=== PATIENT | male | born 1965 | race Caucasian/White ===

== ENCOUNTER → 2022-07-09 | Outpatient (CLI) | payer OTHER, SELFPAY ==
--- NOTE | 2022-07-09 15:52 | MRI_ITS ---
EXAM: MR RIGHT LOWER EXTREMITY WITHOUT INTRAVENOUS CONTRAST, FOOT CLINICAL INDICATION: PLEASE EVAL FOR NON UNION 5TH MT BONE FRACTURE/PERONEAL TENDONITIS TECHNIQUE: Multiplanar and multisequence MR images of the right foot without intravenous contrast. COMPARISON: No relevant prior studies available. FINDINGS: LIGAMENTS: MEDIAL COLLATERAL: Unremarkable. Intact. LATERAL COLLATERAL: Unremarkable. Intact. LISFRANC: Unremarkable. Intact. TENDONS: FLEXOR: Unremarkable. Intact. EXTENSOR: Unremarkable. Intact. PERONEAL: Unremarkable. Intact. TIBIALIS ANTERIOR: Unremarkable. Intact. TIBIALIS POSTERIOR: Unremarkable. Intact. MUSCLES: Muscles and tendons are normal. FLUID: Unremarkable. No other masses or fluid collections. PLANTAR FASCIA: Unremarkable. Intact. BONES/JOINTS: Nonunited fracture involving the proximal metatarsal with very small amount of fluid signal in the area of the fracture line with mild bone marrow edema on both both sides of the fracture line. Alignment is nearly anatomic. Normal forefoot alignment. No joint effusion. No other bone marrow signal alterations. OTHER SOFT TISSUES: Unremarkable. OTHER FINDINGS: Neurovascular structures are normal. MRI/Lower Ext/No Jt/w/o IMPRESSION: Nonunited fracture involving the proximal metatarsal with very small amount of fluid signal in the area of the fracture line with mild bone marrow edema on both both sides of the fracture line. Alignment is nearly anatomic. Electronically Signed: Baldemar Vale MD at 21:34 EDT ,
== END | disposition home or self-care (01) ==
PROVIDERS: PCP Family Medicine; Referring Provider Student in an Organized Health Care Education/Training Program; Visit Provider Student in an Organized Health Care Education/Training Program
DX: M84.374D Stress fracture, right foot, subsequent encounter for fracture with routine healing (principal); M79.671 Pain in right foot
CPT/HCPCS: 73718

== ENCOUNTER 2022-08-23 11:57 | Day surgery (SDC) | payer OTHER, SELFPAY ==
[2022-08-23 12:39] VITALS: BP 122/82; PULSE 56; RESP 16; TEMP 36.3; O2SAT 100; BMI 26.9
[2022-08-23] MEDS: Lactated Ringers 1,000 ML 15 ML IV (12:42)
[2022-08-23] MEDS: Cefazolin 2 GM in 0.9% Normal Saline 100 ML IV (14:32)
--- NOTE | 2022-08-23 14:33 | DCINST_ITS ---
Discharge Instructions Diet Discharge Diet: No restrictions Activity Discharge Activity: May Not Drive, May Shower (Utilize cast bag when showering to keep dressings clean, dry, and intact to the right foot) and Use Crutches Weight Bearing Status: No weight bearing (Please remain nonweightbearing to right foot with use of crutches, knee scooter) Keep extremity elevated above heart level: Right Leg (Please elevate right lower extremity at times of rest for postoperative edema control) Dressing / Incision Call your doctor if you observe: Fever of 101 or Higher, Chest pain, Calf discomfort and Uncontrolled pain Change Dressing in: do not change dressing Remove Dressing in: leave in place till F/U (Physician will change dressing at first postoperative appointment) Cleanse incision/area with: Do not get Incision Wet and Keep Dressing Clean & Dry (Please keep dressings clean dry and intact to right foot) Follow Up Care Please Follow Up With: Son Asencio DPM When: Patient has first postoperative appointment with me in office next week Test Results: Test results from this visit will be discussed in further detail at your follow- up appointment, if applicable. Discharge Plan Admission Attending Provider: Son Asencio Primary Care Provider: Son Lakhani Discharge Orders/Prescriptions Prescriptions: New doxycycline hyclate 100 mg capsule 100 mg PO DAILY Qty: 10 0RF aspirin 325 mg tablet 325 mg PO DAILY 20 Days Qty: 20 0RF oxycodone-acetaminophen 5-325 mg tablet 1 tab PO Q6H PRN (Reason: pain) 7 Days Qty: 28 0RF No Action atorvastatin 40 mg Tablet 40 mg PO QHS modafinil 200 mg Tablet 200 mg PO BID ibuprofen 600 mg Tablet 600 mg PO Q8H PRN (Reason: Pain) multivitamin Capsule 1 cap PO DAILY fish,bora,flax oils-om3,6,9no1 [[place] 3-6-9 Complex] 400-400-400 mg Capsule 1 cap PO BID pqildjup-xhphtlambix-exb C-Mn [id number] mg Tablet 1 tab PO DAILY Referrals / Follow Up: Son Lakhani MD [Primary Care Provider] - Disposition Disposition (needs filled in before D/C Order can be placed): Home, Self Care
--- NOTE | 2022-08-23 14:35 | RAD_ITS ---
XR Foot - intraoperative fluoroscopy INDICATION:57 years old Male presenting with fracture, ORIF nonunion 5th metatarsal fracture. TECHNIQUE: Fluoroscopic images are submitted from a procedure. Fluoro time: 59.5 seconds Images:6 Dose DAP: 1.0 mGy FINDINGS: Intraoperative fluoroscopic images of ORIF proximal 5th metatarsal received, demonstrating adequate alignment of fracture fragments with orthopedic screw in place. No radiologist was present for this procedure. Please see procedure note for further details. Electronically Signed: Calvin Alanis MD at 6:36 EDT , RAD/Foot 2 Views IMPRESSION: undefined
[2022-08-23] MEDS: Bupivacaine Mpf 0.5% 30 ML VIAL (15:00)
[2022-08-23] MEDS: Lidocaine 1% (30 ml sdv) 30 ML Vial (15:00)
[2022-08-23 16:11] VITALS: BP 134/99; PULSE 62; RESP 16; TEMP 36.1; O2SAT 100
[2022-08-23 16:15] VITALS: BP 130/105; PULSE 55; RESP 16; O2SAT 100
--- NOTE | 2022-08-23 16:25 | RAD_ITS ---
INDICATION: Postop ORIF fifth metatarsal fracture EXAMINATION/TECHNIQUE: X-RAY - RIGHT XR Foot Min 3 Views 3 VIEWS COMPARISON: August 23, 2022 fluoroscopy. MRI foot July 09, 2022 FINDINGS: Splint material obscures fine osseous detail. Fifth metatarsal compression screw fixation spanning prior fracture lucency. No additional fracture. No dislocation. Normal bone mineralization. RAD/Foot min 3 Views IMPRESSION: Internal fixation of fifth metatarsal fracture.. Electronically Signed: Danilo Mcpherson MD at 23:11 EDT ,
--- NOTE | 2022-08-23 16:26 | OP.PCM_ITS ---
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 Upon radiographic imaging obtained he is noted to have stress fracture of the base of the fifth metatarsal of the right foot. He did undergo nonweightbearing treatment with serial radiographic imaging confirming healing of the fifth metatarsal site. He did return to activity in the spring and was training for a marathon. He states during one of his runs on Friday just before arriving home he placed his foot into a hole and did hear audible crack in the foot. He did have immediate pain and difficulty weightbearing. He presented to his PCP and obtain radiographic imaging which demonstrated fracture of the base of the fifth metatarsal at previous site of his stress fracture. He did undergo MRI on 07/10/2022 demonstrating bone marrow edema of the fifth metatarsal base and shaft with fluid signal interposed between fracture fragments. Nonunion of fifth metatarsal base fracture. I discussed with him treatment options consisting of bone stimulator versus surgical intervention. Discussed at this point stimulator may be unlikely to aid progress in healing and surgical intervention with bone graft would suit better to aid in healing. He is in agreement with this as he is still getting pain when ambulating and would like to return to activity. I reviewed his condition and reviewed all treatment options in detail. Patient does continue to have limiting pain and significant symptoms secondary to the nonunion of the fracture site despite nonsurgical care. Patient would like to proceed forward with surgical intervention. We discussed the procedure in great detail. Discussed rationale of procedure with the patient great deal. Discussed all possible benefits versus risks and potential complications in detail. Advised patient's risk include, but not limited to the following: Pain, continued pain, complex regional pain syndrome, deformity, continue deformity, recurrence, overcorrection, under correction, numbness/neuritis, swelling, scarring, poor cosmetic result, bleeding, hardware failure, symptomatic hardware, need for further surgery/procedures, fracture, nonunion, delayed union, nonhe aling/delayed healing, dehiscence, infection, blood clots, allergic reaction, transfer lesions, pruritus, weakness, shoe gear problems, inability to walk, inability to wear shoes, stroke, heart attack, addiction to pain medication, loss of function, loss of limb, loss of life. Patient expressed understanding and agreement. Patient was able to repeat these back. The alternative options were discussed and reviewed again in great detail with the patient. Reviewed all risks versus possible benefits of all options. Typical postoperative course was reviewed. Patient expressed understanding and agreement. Consent forms were obtained and signed freely by the patient. No guarantees were given, no promises were made. Patient underwent clearance for surgery by his PCP. All diagnostic data was reviewed prior to surgery. Operative limb was signed prior to entering the OR. He was scheduled to undergo ORIF of nonunion of the fifth metatarsal fracture of the right foot at [facility] on 08/23/2022. Procedure: Under mild sedation patient brought in the operating room placed on table in the supine position. Following induction of IV anesthetic a pneumatic thigh tourniquet was placed about the patient's right thigh. A local anesthetic block was then performed about the lateral ankle consisting of 10 cc of a one-to-one mixture of 1% lidocaine plain and 0.5% Marcaine plain. The foot was then scrubbed, prepped, and draped in the usual aseptic manner. An Esmarch bandage was utilized to exsanguinate the right foot and the pneumatic thigh tourniquet was inflated to 300 mmHg. At this time attention was directed to the right foot where fluoroscopy was utilized in multiple views to confirm position of the fracture site and marked anatomic landmarks. Next, a linear incision was made just proximal to the base of the fifth metatarsal and extended distally beyond the fracture site. Incision was deepened utilizing sharp and blunt dissection. Care was taken to identify and retract all vital neurovascular structures. Fifth metatarsal base was identified and the periosteum was transected and reflected medial and lateral the operative field. The fracture site was identified and transected utilizing an osteotome and mallet. The ends of the bone were debrided utilizing a curette to healthy bleeding bone ends and the site was packed with 2.5 cc of arthrocell plus allograft. Next attention was directed to the proximal aspect of the fifth metatarsal where a guidewire was placed down the canal of the fifth metatarsal and confirmed position in multiple fluoroscopic views. At this time patient did state that he could feel some discomfort and thus a local anesthetic block was performed about the ankle consisting of 10 cc of 1% lidocaine plain and 0.5% Marcaine plain. Following local anesthetic block patient noted pain dissipated and controlled and thus procedure proceeded. Following AO principles and Arthrex 4.5 x 55 mm partially-threaded intramedullary cancellous screw was placed across the fracture site. Reduction of the fracture was noted in multiple fluoroscopic views with compression achieved and no gapping noted on fluoroscopy. Fixation deemed excellent in multiple fluoroscopic views. Site was then flushed with copious amounts of normal sterile saline. The the periosteum and deep tissue were closed with a 4-0 Vicryl. Subcutaneous tissue was closed utilizing 4-0 Monocryl. And the skin was reapproximated utilizing a 3-0 Prolene in simple interrupted fashion. At this time the pneumatic thigh tourniquet was deflated and a prompt hyperemic response was noted to the digits of the foot. Incision site was dressed with Betadine soaked Adaptic, 4 x 4 gauze, Kerlix, web roll cast padding, 4 inch Jay, and 6 inch Jay. A well-padded posterior splint was applied to the right lower extremity and anchored with a 4 inch Jay and 6 inch Jay and Peguero compression fashion. The patient tolerated the procedure and anesthesia well and was transported to PACU with vital signs stable vascular status intact to the right foot. Postoperative films were ordered and reviewed in PACU. Patient is to remain nonweightbearing to the right lower extremity with use of crutches/knee scooter. He is to leave dressings clean, dry, and intact to the right foot. He is to elevate foot at all times rest for postoperative edema control. These were out lined in discharge instructions given to patient and . Postoperative care was also discussed with . He has first postoperative appointment in office with me early next week. Grafts/Implants Used: Arthrex 4.5 x 55 mm partially-threaded cancellous screw; Allograft 2.5cc
[2022-08-23 16:30] VITALS: BP 139/99; PULSE 47; RESP 16; O2SAT 99
[2022-08-23 16:45] VITALS: BP 122/82; BP 131/82; PULSE 58; TEMP 36.3; O2SAT 99
[2022-08-23] MEDS: Oxycodone/Apap 5/325 Tablet PO (17:07)
[2022-08-23 17:32] VITALS: BP 122/82; BP 131/95; PULSE 50; RESP 16; TEMP 36.6; O2SAT 98
== END 2022-08-23 17:45 | disposition home or self-care (01) ==
LOC: SDC 12:04 → AC 12:04
PROVIDERS: PCP Family Medicine; Referring Provider Student in an Organized Health Care Education/Training Program; Visit Provider Student in an Organized Health Care Education/Training Program
PROC: (CPT 28485; principal; 2022-08-23 13:25)
DX: S92.351K Displaced fracture of fifth metatarsal bone, right foot, subsequent encounter for fracture with nonunion (principal); E78.00 Pure hypercholesterolemia, unspecified; G47.33 Obstructive sleep apnea (adult) (pediatric); Z99.89 Dependence on other enabling machines and devices
CPT/HCPCS: 28485; 01480; 73620; 73630; 76000; C1713; J7120; J2405